=== PATIENT | female | born 1990 | race Caucasian/White ===

== ENCOUNTER → 2017-02-13 | Outpatient (CLI) | payer OTHER ==
[2017-02-13 13:00] LABS: GLUCOSE, FASTING 93 MG/DL (70-105)
== END ==
LOC: M WUC 10:07
DX: Z86.32 Personal history of gestational diabetes (principal)

== ENCOUNTER 2017-04-10 21:45 | Outpatient (CLI) | payer OTHER ==
[2017-04-10 22:43] LABS: AMORPHOUS SEDIMENT SMALL (NEGATIVE); APPEARANCE, URINE HAZY (CLEAR); BACTERIA, URINE AUTO 1+ (NEGATIVE); BILIRUBIN, URINE AUTO NEGATIVE (NEGATIVE); BLOOD, URINE BLOOD 1+ (NEGATIVE); COLOR, URINE STRAW (YELLOW); GLUCOSE, URINE (UA) AUTO NEGATIVE (NEGATIVE); KETONE, URINE AUTO NEGATIVE (NEGATIVE); LEUKOCYTE ESTERASE, URINE AUTO NEGATIVE (NEGATIVE); NITRITE, URINE AUTO NEGATIVE (NEGATIVE); PROTEIN, URINE AUTO NEGATIVE (NEGATIVE); RBC, URINE AUTO 1 /HPF (0-3); SPECIFIC GRAVITY URINE AUTO 1.005 (1.002-1.035); SQUAMOUS EPITHELIAL CELL UR AU 2 /HPF (0-6); UROBILINOGEN, URINE AUTO 0.2 mg/dL (0.0-2.0); WBC, URINE AUTO 1 /HPF (0-3)
[2017-04-10 22:49] LABS: HEMATOCRIT 37.5 % (36.0-47.0); HEMOGLOBIN 12.4 g/dl (12.0-16.0); MEAN CORPUSCULAR HEMOGLOBIN 28.2 pg (27.0-33.0); MEAN CORPUSCULAR HGB CONC 33.1 g/dl (32.0-36.5); MEAN CORPUSCULAR VOLUME 85.4 fl (80.0-96.0); PLATELET COUNT, AUTOMATED 176 10^3/uL (150-450); RED BLOOD COUNT 4.39 10^6/uL (4.00-5.40); RED CELL DISTRIBUTION WIDTH 13.7 % (11.5-14.5); WHITE BLOOD COUNT 18.6 10^3/uL (4.0-10.0)
[2017-04-10 23:13] LABS: ALBUMIN 3.4 GM/DL (3.2-5.2); ALBUMIN/GLOBULIN RATIO 1.03 (1.00-1.93); ALKALINE PHOSPHATASE 60 U/L (45-117); ALT/SGPT 11 U/L (12-78); ANION GAP 10 MEQ/L (8-16); AST/SGOT 7 U/L (7-37); BILIRUBIN,TOTAL 0.5 MG/DL (0.2-1.0); BLOOD UREA NITROGEN 7 MG/DL (7-18); CALCIUM LEVEL 8.4 MG/DL (8.5-10.1); CARBON DIOXIDE LEVEL 24 MEQ/L (21-32); CHLORIDE LEVEL 106 MEQ/L (98-107); CREATININE FOR GFR 0.69 MG/DL (0.55-1.30); GLOMERULAR FILTRATION RATE > 60.0 (>60); GLUCOSE, FASTING 102 MG/DL (70-100); POTASSIUM SERUM 4.2 MEQ/L (3.5-5.1); SODIUM LEVEL 140 MEQ/L (136-145); TOTAL PROTEIN 6.7 GM/DL (6.4-8.2)
[2017-04-10] MEDS ORDERED: ceFAZolin 2 GM/D5W 50 ML IV BAG (J0690 PER 500MG) As Ordered (23:38)
[2017-04-10] MEDS ORDERED: MORPHINE 4 MG/ML 1ML VIAL (J2270) As Ordered (23:42)
[2017-04-10] MEDS ORDERED: PROMETHAZINE INJ 25 MG/ML VIAL (J2550) As Ordered (23:43)
[2017-04-10] MEDS: LR 1,000 ML IV (23:45)
[2017-04-11] MEDS: PROMETHAZINE INJ 25 MG/ML VIAL (J2550) IV ×3 (00:19→10:57)
[2017-04-11] MEDS: MORPHINE 4 MG/ML 1ML VIAL (J2270) IV ×7 (00:19→11:28)
[2017-04-11] MEDS: LR 1,000 ML IV ×3 (04:45→19:19)
[2017-04-11] MEDS: ACETAMINOPHEN 500 MG TAB PO ×2 (14:36→21:10)
[2017-04-12 08:57] LABS: HEMATOCRIT 35.7 % (36.0-47.0); HEMOGLOBIN 11.6 g/dl (12.0-16.0); MEAN CORPUSCULAR HEMOGLOBIN 28.1 pg (27.0-33.0); MEAN CORPUSCULAR HGB CONC 32.5 g/dl (32.0-36.5); MEAN CORPUSCULAR VOLUME 86.4 fl (80.0-96.0); PLATELET COUNT, AUTOMATED 164 10^3/uL (150-450); RED BLOOD COUNT 4.13 10^6/uL (4.00-5.40); RED CELL DISTRIBUTION WIDTH 13.8 % (11.5-14.5); WHITE BLOOD COUNT 12.2 10^3/uL (4.0-10.0)
== END 2017-04-12 09:26 | disposition home or self-care (01) ==
LOC: M LDO 21:45
DX: O26.833 Pregnancy related renal disease, third trimester (principal); Z3A.20 20 weeks gestation of pregnancy
CPT/HCPCS: J2270

== ENCOUNTER → 2017-06-12 | Outpatient (CLI) | payer OTHER ==
[2017-06-12 13:53] LABS: BASO % 0.4 % (0.0-1.0); EOS # 0.3 10^3/uL (0.0-0.50); EOS % 2.8 % (0.0-3.0); HEMATOCRIT 35.7 % (36.0-47.0); HEMOGLOBIN 11.5 g/dl (12.0-15.5); IMMATURE GRANULOCYTE % 1.5 % (0-3.0); LYMPH % 18.4 % (24.0-44.0); MEAN CORPUSCULAR HEMOGLOBIN 26.9 pg (27.0-33.0); MEAN CORPUSCULAR HGB CONC 32.2 g/dl (32.0-36.5); MEAN CORPUSCULAR VOLUME 83.6 fl (80.0-96.0); MONO # 0.6 10^3/uL (0.0-0.8); MONO % 5.7 % (0.0-5.0); NEUTROPHILS # 7.7 10^3/uL (1.8-7.7); NEUTROPHILS % 71.2 % (36.0-66.0); PLATELET COUNT, AUTOMATED 165 10^3/uL (150-450); RED BLOOD COUNT 4.27 10^6/uL (4.00-5.40); RED CELL DISTRIBUTION WIDTH 14.2 % (11.5-14.5); WHITE BLOOD COUNT 10.8 10^3/uL (4.0-10.0)
[2017-06-12 14:29] LABS: HEPATITIS B SURFACE ANTIGEN NEGATIVE (NEGATIVE)
[2017-06-12 14:56] LABS: HEPATITIS C VIRUS ABY INDEX < 0.0 INDEX (<0.8)
[2017-06-12 15:03] LABS: CHLAMYDIA DNA AMPLIFICATION NEGATIVE (NEGATIVE); GC DNA AMPLIFICATION NEGATIVE (NEGATIVE)
== END ==
LOC: M SMT 09:07
DX: Z34.82 Encounter for supervision of other normal pregnancy, second trimester (principal)
CPT/HCPCS: 87340

== ENCOUNTER → 2017-07-07 | Outpatient (CLI) | payer OTHER | LOC: M SMT 13:24 | DX: O24.415 Gestational diabetes mellitus in pregnancy, controlled by oral hypoglycemic drugs (principal); Z3A.33 33 weeks gestation of pregnancy | CPT/HCPCS: 76816 ==

== ENCOUNTER → 2017-08-01 | Outpatient (REF) | payer OTHER | LOC: M LAB REF 17:00 | DX: Z34.83 Encounter for supervision of other normal pregnancy, third trimester (principal) ==

== ENCOUNTER 2017-08-05 07:44 | Inpatient (IN) | payer OTHER ==
[2017-08-05] MEDS ORDERED: INSULIN IV RATE CHANGE DOCUMENTATION ML/HR XX (08:00)
[2017-08-05 08:42] LABS: BEDSIDE GLUCOSE 85 MG/DL (70-105)
[2017-08-05 08:58] LABS: HEMATOCRIT 37.5 % (36.0-47.0); HEMOGLOBIN 11.8 g/dl (12.0-15.5); MEAN CORPUSCULAR HEMOGLOBIN 25.1 pg (27.0-33.0); MEAN CORPUSCULAR HGB CONC 31.5 g/dl (32.0-36.5); MEAN CORPUSCULAR VOLUME 79.6 fl (80.0-96.0); PLATELET COUNT, AUTOMATED 154 10^3/uL (150-450); RED BLOOD COUNT 4.71 10^6/uL (4.00-5.40); RED CELL DISTRIBUTION WIDTH 15.4 % (11.5-14.5); WHITE BLOOD COUNT 12.3 10^3/uL (4.0-10.0)
[2017-08-05] MEDS ORDERED: FENTANYL 2MCG/ML ROPIVACAINE 0.2% IN 0.9% NACL 200ML IVBAG As Ordered (10:47)
[2017-08-05 10:54] LABS: BEDSIDE GLUCOSE 65 MG/DL (70-105)
[2017-08-05 11:55] LABS: BEDSIDE GLUCOSE 93 MG/DL (70-105)
[2017-08-05] MEDS: NS 1,000 ML IV (12:06)
[2017-08-05] MEDS: OXYTOCIN DRIP 30 UNITS in APPROPRIATE DILUENT 1 EA IV (12:07)
[2017-08-05] MEDS: LACTATED RINGER'S 1000 ML IV (12:07)
[2017-08-05] MEDS ORDERED: REFRIGERATOR IV KEYS XX (12:15)
[2017-08-05] MEDS ORDERED: EPIDURAL COMMENT XX (12:15)
[2017-08-05] MEDS ORDERED: NALOXONE INJ 0.4 MG/1 ML VIAL (J2310) IV (12:15)
[2017-08-05] MEDS ORDERED: FENTANYL/ROPIVACAINE/NACL BAG 200 ML EPIDURAL (12:15)
[2017-08-05] MEDS ORDERED: diphenhydrAMINE INJ 50MG/ML VIAL (J1200) IV (12:15)
[2017-08-05] MEDS ORDERED: LACTATED RINGER'S 1000 ML IV (12:15)
[2017-08-05] MEDS ORDERED: ONDANSETRON 4MG/2ML VIAL (J2405) IV (12:15)
[2017-08-05] MEDS ORDERED: ePHEDrine SULFATE 25 MG/5 ML(5MG/ML) SYRINGE IV (12:15)
[2017-08-05] MEDS ORDERED: EPIDURAL/PCA KEYS XX (12:15)
[2017-08-05 12:55] LABS: BEDSIDE GLUCOSE 72 MG/DL (70-105)
[2017-08-05] MEDS ORDERED: INSULIN HUMAN REGULAR 100 UNITS in NS 99 ML IV (13:00)
[2017-08-05 13:53] LABS: BEDSIDE GLUCOSE 75 MG/DL (70-105)
[2017-08-05 15:02] LABS: BEDSIDE GLUCOSE 67 MG/DL (70-105)
[2017-08-05 16:04] LABS: BEDSIDE GLUCOSE 80 MG/DL (70-105)
[2017-08-05 16:57] LABS: BEDSIDE GLUCOSE 79 MG/DL (70-105)
[2017-08-05] MEDS ORDERED: ACETAMINOPHEN 500 MG TAB As Ordered (17:07)
[2017-08-05] MEDS: ACETAMINOPHEN 500 MG TAB PO (17:13)
[2017-08-05 19:11] LABS: BEDSIDE GLUCOSE 75 MG/DL (70-105)
[2017-08-05 20:03] LABS: BEDSIDE GLUCOSE 71 MG/DL (70-105)
[2017-08-05 20:57] LABS: BEDSIDE GLUCOSE 68 MG/DL (70-105)
[2017-08-05 22:10] LABS: BEDSIDE GLUCOSE 91 MG/DL (70-105)
[2017-08-05 23:12] LABS: BEDSIDE GLUCOSE 73 MG/DL (70-105)
[2017-08-06 00:02] LABS: BEDSIDE GLUCOSE 137 MG/DL (70-105)
[2017-08-06] MEDS ORDERED: BICITRA 30ML SOLN UDC As Ordered (00:42)
[2017-08-06] MEDS ORDERED: ceFAZolin 2 GM/D5W 50 ML IV BAG (J0690 PER 500MG) As Ordered (00:43)
[2017-08-06] MEDS ORDERED: AZITHROMYCIN INJ 500MG VIAL (J0456) As Ordered (00:44)
[2017-08-06] MEDS ORDERED: OXYTOCIN INJ 10 UNITS/ML VIAL (J2590) As Ordered ×2 (00:52)
[2017-08-06] MEDS ORDERED: LIDOCAINE 2% W/EPIN INJ 20ML **PRES FREE As Ordered (00:55)
[2017-08-06] MEDS: AZITHROMYCIN INJ 500 MG, VIAL MATE ADAPTER 1 EACH in D5W 250 ML IV (01:00)
[2017-08-06] MEDS: BICITRA 30ML SOLN UDC PO (01:00)
[2017-08-06] MEDS ORDERED: ONDANSETRON 4MG/2ML VIAL (J2405) As Ordered (01:45)
[2017-08-06] MEDS ORDERED: MORPHINE PRES-FREE INJ 10 MG/10 ML VIAL (J2274) As Ordered (01:50)
[2017-08-06] MEDS ORDERED: LIDOCAINE PRES-FREE 2% 10ML AMP As Ordered (02:06)
[2017-08-06] MEDS ORDERED: PHENYLephrine HCL 500 MCG/5 ML (100MCG/ML) SYRINGE (J2370) As Ordered (02:11)
[2017-08-06] MEDS ORDERED: METOCLOPRAMIDE INJ 10MG/2ML VIAL (J2765) IV ×2 (02:13→03:30)
[2017-08-06] MEDS ORDERED: NALOXONE INJ 0.4 MG/1 ML VIAL (J2310) IV ×2 (02:13)
[2017-08-06] MEDS ORDERED: NALBUPHINE HCL 10 MG/ML AMP (J2300) IV (02:13)
[2017-08-06] MEDS ORDERED: ONDANSETRON 4MG/2ML VIAL (J2405) IV ×3 (02:13→03:30)
[2017-08-06] MEDS ORDERED: KETOROLAC 60 MG/2 ML VIAL (J1885) As Ordered (02:28)
[2017-08-06] MEDS ORDERED: fentaNYL 100 MCG/2 ML INJECTION (J3010) As Ordered ×3 (02:43→03:24)
[2017-08-06] MEDS: OXYTOCIN DRIP 30 UNITS in APPROPRIATE DILUENT 1 EA IV (02:46)
[2017-08-06] MEDS: LR 1,000 ML IV ×2 (02:46→10:46)
[2017-08-06] MEDS ORDERED: MEASLES,MUMPS,RUBELLA VACCINE INJ (MMR-II) (90707) SC (03:00)
[2017-08-06] MEDS ORDERED: RHOGAM 300 MCG (1500 IU) INJ (J2790) IM (03:00)
[2017-08-06] MEDS ORDERED: OXYTOCIN 30 UNITS IN 0.9% NaCl 500ML IV BAG (J2590) As Ordered (03:29)
[2017-08-06] MEDS ORDERED: MEPERIDINE INJ 25 MG/ML VIAL (J2175) IV (03:30)
[2017-08-06] MEDS ORDERED: fentaNYL 100 MCG/2 ML INJECTION (J3010) IV (03:30)
[2017-08-06] MEDS ORDERED: PERCOCET 5MG/325MG TAB PO (03:30)
[2017-08-06] MEDS: PERCOCET 5MG/325MG TAB PO ×2 (06:04→16:57)
[2017-08-06] MEDS: KETOROLAC 30 MG/ML VIAL (J1885) IV ×3 (08:27→20:20)
[2017-08-06] MEDS: PRENATAL VITAMINS CHEWABLE TABLET PO (08:27)
[2017-08-06] MEDS: DOCUSATE SODIUM 100 MG CAP PO ×2 (08:27→20:20)
[2017-08-07] MEDS ORDERED: ONDANSETRON 4MG/2ML VIAL (J2405) IV (02:00)
[2017-08-07] MEDS: KETOROLAC 30 MG/ML VIAL (J1885) IV (03:00)
[2017-08-07] MEDS ORDERED: PROMETHAZINE 25 MG TAB PO (04:00)
[2017-08-07 07:06] LABS: HEMATOCRIT 27.7 % (36.0-47.0); MEAN CORPUSCULAR HEMOGLOBIN 25.1 pg (27.0-33.0); MEAN CORPUSCULAR HGB CONC 32.1 g/dl (32.0-36.5); MEAN CORPUSCULAR VOLUME 78.2 fl (80.0-96.0); PLATELET COUNT, AUTOMATED 142 10^3/uL (150-450); RED BLOOD COUNT 3.54 10^6/uL (4.00-5.40); RED CELL DISTRIBUTION WIDTH 15.6 % (11.5-14.5); WHITE BLOOD COUNT 13.1 10^3/uL (4.0-10.0)
[2017-08-07 07:13] LABS: HEMOGLOBIN 8.9 g/dl (12.0-15.5)
[2017-08-07] MEDS: DOCUSATE SODIUM 100 MG CAP PO ×2 (08:11→20:23)
[2017-08-07] MEDS: PRENATAL VITAMINS CHEWABLE TABLET PO (08:11)
[2017-08-07] MEDS: PERCOCET 5MG/325MG TAB PO ×2 (09:29→16:50)
[2017-08-07] MEDS: IBUPROFEN 800 MG TAB PO ×2 (11:28→18:59)
[2017-08-08] MEDS: IBUPROFEN 800 MG TAB PO ×2 (02:23→10:33)
[2017-08-08] MEDS: PERCOCET 5MG/325MG TAB PO (02:24)
[2017-08-08] MEDS: PRENATAL VITAMINS CHEWABLE TABLET PO (10:32)
[2017-08-08] MEDS: DOCUSATE SODIUM 100 MG CAP PO (10:32)
== END 2017-08-08 12:55 | disposition home or self-care (01) | DRG 540 ==
LOC: M LDI 07:44 → M OBS 08-06 04:31
PROVIDERS: Obstetrics & Gynecology
PROC: 10D00Z1 Extraction of Products of Conception, Low, Open Approach (ICD-10-PCS; principal; 2017-08-06 01:24)
PROC: 3E033VJ Introduction of Other Hormone into Peripheral Vein, Percutaneous Approach (ICD-10-PCS; 2017-08-06 01:24)
PROC: 10907ZC Drainage of Amniotic Fluid, Therapeutic from Products of Conception, Via Natural or Artificial Opening (ICD-10-PCS; 2017-08-06 01:24)
DX: O24.425 Gestational diabetes mellitus in childbirth, controlled by oral hypoglycemic drugs (principal); O34.33 Maternal care for cervical incompetence, third trimester; Z37.0 Single live birth; Z3A.37 37 weeks gestation of pregnancy; Z79.84 Long term (current) use of oral hypoglycemic drugs; O62.0 Primary inadequate contractions; Z79.899 Other long term (current) drug therapy

== ENCOUNTER → 2018-10-02 | Outpatient (CLI) | payer OTHER ==
[~2018-10-02] MED LIST: COLA100C5 PO; GLUC500T PO; IBUP1TAB7 PO; OXYC1TAB23 PO; PRENTAB9 PO
[2018-10-02 13:41] LABS: HEMATOCRIT 35.1 % (36.0-47.0); HEMOGLOBIN 10.2 g/dl (12.0-15.5); MEAN CORPUSCULAR HEMOGLOBIN 20.5 pg (27.0-33.0); MEAN CORPUSCULAR HGB CONC 29.1 g/dl (32.0-36.5); MEAN CORPUSCULAR VOLUME 70.5 fl (80.0-96.0); PLATELET COUNT, AUTOMATED 309 10^3/uL (150-450); RED BLOOD COUNT 4.98 10^6/uL (4.00-5.40); WHITE BLOOD COUNT 12.6 10^3/uL (4.0-10.0)
[2018-10-02 14:00] LABS: ALBUMIN 3.8 GM/DL (3.2-5.2); ALT/SGPT 17 U/L (12-78); BILIRUBIN,TOTAL 0.6 MG/DL (0.2-1.0); BLOOD UREA NITROGEN 12 MG/DL (7-18); CARBON DIOXIDE LEVEL 24 MEQ/L (21-32); CHLORIDE LEVEL 110 MEQ/L (98-107); CHOLESTEROL LEVEL 141 MG/DL (<200); CHOLESTEROL RISK RATIO 3.065 (<5); CREATININE FOR GFR 0.82 MG/DL (0.55-1.30); FREE T4 1.11 NG/DL (0.76-1.46); GLOMERULAR FILTRATION RATE > 60.0 (>60); GLUCOSE, FASTING 101 MG/DL (70-100); HDL CHOLESTEROL 46 MG/DL (>40); LDL CHOLESTEROL 56 MG/DL (<100); NON-HDL-C 95 MG/DL; POTASSIUM SERUM 4.5 MEQ/L (3.5-5.1); SODIUM LEVEL 141 MEQ/L (136-145); TOTAL PROTEIN 7.3 GM/DL (6.4-8.2); TRIGLYCERIDES LEVEL 194 MG/DL (<150)
[2018-10-02 15:58] LABS: HEMOGLOBIN A1c 5.2 %
== END ==
LOC: M SMT 09:32
PROVIDERS: ATTEND Advanced Practice Midwife
DX: Z12.4 Encounter for screening for malignant neoplasm of cervix (principal); N87.0 Mild cervical dysplasia

== ENCOUNTER → 2019-11-26 | Outpatient (REF) | payer OTHER | LOC: M SFHCWAGY 17:44 | PROVIDERS: ATTEND Obstetrics & Gynecology | DX: Z12.4 Encounter for screening for malignant neoplasm of cervix (principal) ==

== ENCOUNTER → 2020-06-29 | Outpatient (REF) | payer OTHER | LOC: M PLALAB 11:15 | PROVIDERS: ATTEND Advanced Practice Midwife | DX: O20.0 Threatened abortion (principal) ==

== ENCOUNTER → 2020-07-01 | Outpatient (CLI) | payer OTHER | LOC: M PLALAB 10:51 | PROVIDERS: ATTEND Advanced Practice Midwife | DX: O20.0 Threatened abortion (principal); Z3A.00 Weeks of gestation of pregnancy not specified ==

== ENCOUNTER → 2020-07-02 | Outpatient (CLI) | payer OTHER ==
--- NOTE | 2020-07-02 14:46 | REP ---
INDICATION: INAPP CHG HCG EARLY PREG / R/O ECTOPIC PREG COMPARISON: None. TECHNIQUE: Transabdominal and transvaginal 1st trimester obstetrical ultrasound with color Doppler evaluation. FINDINGS: Heterogeneous anteverted uterus measures 11.1 x 5.2 x 6.4 cm. The endometrial complex measures 10 mm thickness without significant decidual reaction, endocervical fluid or intrauterine . Maternal ovaries are normal in vascularity without torsion. Right ovary measures 5.6 x 4.1 x 5.4 cm (RI 0.56) and includes 3.3 x 3.2 x 3.4 cm hypoechoic lesion likely representing corpus luteal cyst. Left ovary measures 3.3 x 2.0 x 3.3 cm (RI 0.56) and includes 1.4 x 1.5 x 1.6 cm hypoechoic lesion possibly representing physiologic cyst. No pelvic fluid or adnexal mass lesion identified. IMPRESSION: 1. Relatively normal appearance of the uterus without intrauterine . Differential diagnosis includes spontaneous , early , and ectopic cannot definitively be excluded. Correlation with serial HCG levels and repeat ultrasound as necessary. 2. Presumed cystic ovarian lesions as noted above less likely representing ectopic . <Electronically signed by Wesley Jefferson > 07/02/20 1524
== END ==
LOC: M RAD 14:04
PROVIDERS: ATTEND Advanced Practice Midwife
DX: O02.81 Inappropriate change in quantitative human chorionic gonadotropin (hCG) in early pregnancy (principal)

== ENCOUNTER → 2020-07-03 | Outpatient (REF) | payer OTHER ==
[2020-07-03 13:32] LABS: HEMATOCRIT 41.2 % (36.0-47.0); HEMOGLOBIN 13.5 g/dl (12.0-15.5); MEAN CORPUSCULAR HEMOGLOBIN 28.8 pg (27.0-33.0); MEAN CORPUSCULAR HGB CONC 32.8 g/dl (32.0-36.5); PLATELET COUNT, AUTOMATED 245 10^3/uL (150-450); RED BLOOD COUNT 4.68 10^6/uL (4.00-5.40); WHITE BLOOD COUNT 10.4 10^3/uL (4.0-10.0)
[2020-07-03 14:16] LABS: ALBUMIN 4.1 GM/DL (3.2-5.2); ALT/SGPT 24 U/L (12-78); BILIRUBIN,TOTAL 0.9 MG/DL (0.2-1.0); BLOOD UREA NITROGEN 7 MG/DL (7-18); CALCIUM LEVEL 9.6 MG/DL (8.5-10.1); CARBON DIOXIDE LEVEL 24 MEQ/L (21-32); CHLORIDE LEVEL 108 MEQ/L (98-107); CREATININE FOR GFR 0.62 MG/DL (0.55-1.30); GLOMERULAR FILTRATION RATE > 60.0 (>60); GLUCOSE, FASTING 87 MG/DL (70-100); POTASSIUM SERUM 4.3 MEQ/L (3.5-5.1); SODIUM LEVEL 139 MEQ/L (136-145); TOTAL PROTEIN 7.3 GM/DL (6.4-8.2)
== END ==
LOC: M PLALAB 10:52
PROVIDERS: ATTEND Advanced Practice Midwife
DX: O02.81 Inappropriate change in quantitative human chorionic gonadotropin (hCG) in early pregnancy (principal)

== ENCOUNTER → 2020-07-07 | Outpatient (REF) | payer OTHER | LOC: M PLALAB 12:27 | PROVIDERS: ATTEND Advanced Practice Midwife | DX: O02.81 Inappropriate change in quantitative human chorionic gonadotropin (hCG) in early pregnancy (principal) ==

== ENCOUNTER 2020-07-09 12:54 | Day surgery (SDC) | payer OTHER ==
[~2020-07-09] VITALS: Ht 149.9 cm; Wt 67.9 kg
[~2020-07-09 12:54] MED LIST changes: +DOXYCYCLINE HYCLATE 100 MG in D5W MINI-BAG PLUS 100 ML IV ONE; +LR 1,000 ML IV SCH
[2020-07-09] MEDS ORDERED: fentaNYL 100 MCG/2 ML INJECTION (J3010) As Ordered ONE (13:22)
[2020-07-09] MEDS ORDERED: MIDAZOLAM INJ 2MG/2ML VIAL (J2250 PER 1MG) As Ordered ONE (13:22)
[2020-07-09] MEDS ORDERED: LIDOCAINE 2% 100MG/5ML SDV (FOR ANES.) As Ordered ONE (13:24)
[2020-07-09 13:33] LABS: HEMATOCRIT 42.5 % (36.0-47.0); MEAN CORPUSCULAR HEMOGLOBIN 28.9 pg (27.0-33.0); MEAN CORPUSCULAR HGB CONC 32.9 g/dl (32.0-36.5); MEAN CORPUSCULAR VOLUME 87.6 fl (80.0-96.0); PLATELET COUNT, AUTOMATED 202 10^3/uL (150-450); RED BLOOD COUNT 4.85 10^6/uL (4.00-5.40); WHITE BLOOD COUNT 12.7 10^3/uL (4.0-10.0)
[2020-07-09] MEDS ORDERED: ONDANSETRON 4MG/2ML VIAL As Ordered ONE (13:50)
[2020-07-09] MEDS ORDERED: dexameTHASONE 4 MG/ML 1ML VIAL (J1100 PER 1MG) As Ordered ONE (13:50)
[2020-07-09] MEDS ORDERED: KETOROLAC 60MG 2ML VIAL As Ordered ONE (13:50)
[2020-07-09] MEDS ORDERED: propofoL 200 MG/20 ML VIAL As Ordered ONE (13:51)
--- NOTE | 2020-07-09 14:15 | ROOPDOC ---
[facility] Report Of Operation Report of Operation DATE OF PROCEDURE: 07/09/2020 PREPROCEDURE DIAGNOSES: First trimester miscarriage, missed . POSTPROCEDURE DIAGNOSES: Same. PROCEDURE: Suction D&C. SURGEON: Zoe Haney DO FACOG CARRY IN WORKER: none ANESTHESIA: General via LMA ESTIMATED BLOOD LOSS: Approximately 100 mL. IV FLUIDS REPLACED: 300 mL LR UOP: in and out cath, 25 mL COMPLICATIONS: none. SPECIMENS: products of conception, intrauterine tissue. PREOPERATIVE / PROPHYLACTIC ANTIBIOTIC: Doxycycline 100mg IV x1. INTRAOPERATIVE FINDINGS/REMARKS: Uterus sounded to 8 cm, tissue removed was grossly inspected and consistent with products of conception. 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 It is not a glandular polyp with a stalk, nor does it have the consistency of a fibroid nor is it fungating and friable like a cervical cancer mass. It is smooth in appearance and confluent with the ectocervix. Her cervical cancer screening is negative and up-to-date. DESCRIPTION OF PROCEDURE: The patient was counseled, consented on the risks, benefits, indications and alternatives procedure. Informed consent was obtained. She was taken to the operating room with an IV running and placed on the operating table in dorsal supine position. Gen. anesthesia was administered and the airway was secured without any difficulty. She was prepared and draped in the normal sterile fashion. She was placed in the high lithotomy position. A time out was performed per protocol. The bladder was drained with a sterile in and out catheter. Sterile speculum was placed with good visualization of the cervix. The cervix was grasped with a single-tooth tenaculum at the anterior lip and downward traction was applied. The cervix was sequentially dilated with Christian dilators up to a #20. A size 9 curved Vacurette was placed trans-cervically into the intrauterine cavity. Suction was activated. Tissue and blood return was consistent with products of conception. After removal of the Vacurette, a sharp curettage was performed with minimal tissue and blood return. Minimal bleeding from the cervical os was noted. The patient's vitals were normal and stable. The decision was made to conclude the procedure. Single-tooth tenaculum was removed from the cervix and the tenaculum sites were noted to be hemostatic. Again, minimal bleeding from the cervical os was noted. All instruments were removed from the vagina. Sponge and instrument counts were correct per protocol. The patient was transferred to the PACU in good and stable condition. Zoe Haney DO FACOG. ZOE HANEY DO Jul 09, 2020 14:15
[2020-07-09] MEDS ORDERED: METOCLOPRAMIDE INJ 10MG/2ML VIAL (J2765 PER 1) IV PRN (14:30)
[2020-07-09] MEDS ORDERED: fentaNYL 100 MCG/2 ML INJECTION (J3010) IV PRN (14:30)
[2020-07-09] MEDS ORDERED: ONDANSETRON 4MG/2ML VIAL IV PRN (14:30)
[2020-07-09] MEDS ORDERED: LR 1,000 ML IV SCH ×2 (14:30→14:35)
[2020-07-09] MEDS ORDERED: PERCOCET 5MG/325MG TAB PO PRN (14:30)
[2020-07-09] MEDS ORDERED: DOXYCYCLINE HYCLATE 100MG TABLET PO ONE (14:35)
[2020-07-09 15:27] VITALS: BP 155/87
== END 2020-07-09 15:35 | disposition home or self-care (01) ==
LOC: M SDC 12:54
PROVIDERS: ATTEND Obstetrics & Gynecology
DX: O02.1 Missed abortion (principal); E28.2 Polycystic ovarian syndrome; Z79.899 Other long term (current) drug therapy
CPT/HCPCS: 36415; 59820; 85027; 86850; 86900; 86901; 88305; J1100; J1885; J2250; J2405; J3010; U0002

== ENCOUNTER 2020-07-21 17:37 | Emergency (ER) | payer OTHER ==
[~2020-07-21] VITALS: Ht 149.9 cm; Wt 67.8 kg
[~2020-07-21 17:37] MED LIST changes: -DOXYCYCLINE HYCLATE 100 MG in D5W MINI-BAG PLUS 100 ML IV ONE; -LR 1,000 ML IV SCH
--- NOTE | 2020-07-21 18:52 | REP ---
INDICATION: poss ectopic preg, right sided pain. COMPARISON: 07/02/2020. TECHNIQUE: Real-time sonographic evaluation of pelvis performed utilizing transabdominal and endovaginal technique. FINDINGS: Uterus measures 11.8 x 4.9 x 7.5 cm. No intrauterine gestational sac is present. Endometrial echo complex measures 7 mm. Right ovary measures 5.8 x 3.0 x 4.0 cm and left ovary 4.9 x 1.9 x 2.9 cm. There is blood flow seen in each ovary with duplex Doppler evaluation, with no torsion. A simple cyst in the right ovary measures 3.8 x 4.3 x 3.6 cm. A simple cyst in the left ovary measures 2.2 x 1.9 x 1.8 cm. No free fluid is visualized. IMPRESSION: Empty uterus. Simple cyst right ovary 4.3 cm and simple cyst left ovary 2.2 cm. No torsion. No free fluid. <Electronically signed by Alpesh Marquez > 07/21/20 0652
[2020-07-21] MEDS ORDERED: KETOROLAC 30 MG/ML 1ML VIAL IV ONE (20:45)
[2020-07-21 21:12] LABS: BASO # 0.1 10^3/uL (0.0-0.2); BASO % 0.4 % (0.0-1.0); EOS # 0.5 10^3/uL (0.0-0.5); EOS % 3.7 % (0.0-3.0); HEMATOCRIT 33.4 % (36.0-47.0); LYMPH # 3.6 10^3/uL (1.5-5.0); LYMPH % 25.6 % (24.0-44.0); MEAN CORPUSCULAR HEMOGLOBIN 28.7 pg (27.0-33.0); MEAN CORPUSCULAR HGB CONC 32.9 g/dl (32.0-36.5); MEAN CORPUSCULAR VOLUME 87.2 fl (80.0-96.0); MONO # 0.6 10^3/uL (0.0-0.8); MONO % 4.6 % (2.0-8.0); NEUTROPHILS # 9.1 10^3/uL (1.5-8.5); NEUTROPHILS % 65.2 % (36.0-66.0); PLATELET COUNT, AUTOMATED 265 10^3/uL (150-450); RED BLOOD COUNT 3.83 10^6/uL (4.00-5.40); WHITE BLOOD COUNT 13.9 10^3/uL (4.0-10.0)
[2020-07-21 22:11] LABS: BLOOD UREA NITROGEN 11 MG/DL (7-18); CALCIUM LEVEL 9.1 MG/DL (8.5-10.1); CARBON DIOXIDE LEVEL 23 MEQ/L (21-32); CHLORIDE LEVEL 109 MEQ/L (98-107); CREATININE FOR GFR 0.61 MG/DL (0.55-1.30); GLOMERULAR FILTRATION RATE > 60.0 (>60); GLUCOSE, FASTING 95 MG/DL (70-100); HCG, SERUM QUANTITATIVE 909 MIU/ML; POTASSIUM SERUM 3.8 MEQ/L (3.5-5.1); SODIUM LEVEL 139 MEQ/L (136-145)
[2020-07-22] MEDS ORDERED: METHOTREXATE 50MG/2ML VIAL (J9260 PER 50MG) IM STA (00:29)
[2020-07-22 00:58] VITALS: BP 133/72
[2020-07-22] MEDS ORDERED: HYDR-3713 PO (01:04)
[2020-07-22] MEDS ORDERED: NORCO 5/325MG TABLET (BULK FOR ED) PO ONE (01:05)
--- NOTE | 2020-07-22 01:49 | CR.PDOC ---
General Date of Consultation: Jul 22, 2020 Consultation REASON FOR CONSULTATION/CHIEF COMPLAINT: Bleeding, pelvic pain, possible ectopic . HISTORY OF PRESENT ILLNESS: 29-year-old G4, P3 female presents to the emergency room with 10 days of bleeding and lower abdominal cramping. She rated the pain as 7 out of 10 on arrival. Bleeding is persistent and moderately heavy. History significant for a D&C procedure on 07/09/2020 for abnormally rising beta hCGs and a of uncertain location. Her last hCG level peaked at 3248 on 07/07/2020. ALLERGIES: Please see below. HOME MEDICATIONS: Please see below. PAST MEDICAL HISTORY: 1. PCOS. PAST SURGICAL HISTORY: 1. CCY 2. section x 1 3. Tonsillectomy FAMILY HISTORY: non-contributory SOCIAL HISTORY: Marital status and/or living arrangements: Children: 3 . Denies alcohol or drug use REVIEW OF SYSTEMS: Normal, except for those that are stated PHYSICAL EXAMINATION: VITAL SIGNS: Please see below. GENERAL APPEARANCE: No apparent distress. HEENT: Within normal limits. RESPIRATORY: Clear to auscultation CARDIOVASCULAR: Regular rate and rhythm. ABDOMEN: Mild tenderness in the suprapubic region. No rebound. No guarding. EXTREMITIES: Nontender. SVE: Cervix is closed. Bleeding is mild. Mild cervical tenderness, mild right adnexal tenderness LABORATORY DATA: Please see below. Serum hCG level = 909 Pelvic ultrasound: normal endometrial lining approximately 7 mm diameter. Probable scar ectopic gestation seen in the lower uterine segment. No free fluid in the pelvis. Bilateral simple appearing ovarian cysts ASSESSMENT/PLAN: scar ectopic 1. Reviewed diagnosis with the patient.. 2. Plan methotrexate treatment; medical treatment of this is reasonable based upon the decreasing hCG levels. 3. Consent for methotrexate signed 4 . Patient is aware of the option of surgical treatment 5. Plan repeat hCG level on 07/23/2020 6. Planned visit in the office on 07/24/2020 7. Ectopic precautions such as rupture of the scar discussed Vital Signs/I&O Vital Signs Date Time Temp Pulse Resp B/P (MAP) Pulse Ox O2 Delivery O2 Flow Rate FiO2 07/22/20 00:58 97.9 82 133/72 (92) 97 07/21/20 21:01 16 07/21/20 17:37 Room Air Laboratory Data Labs 24H Laboratory Tests 2 07/21/20 20:58: Immature Granulocyte % (Auto) 0.5, Neutrophils (%) (Auto) 65.2, Lymphocytes (%) (Auto) 25.6, Monocytes (%) (Auto) 4.6, Eosinophils (%) (Auto) 3.7H, Basophils (%) (Auto) 0.4, Neutrophils # (Auto) 9.1H, Lymphocytes # (Auto) 3.6, Monocytes # (Auto) 0.6, Eosinophils # (Auto) 0.5, Basophils # (Auto) 0.1, Nucleated Red Blood Cells % (auto) 0.0, Anion Gap 7L, Glomerular Filtration Rate > 60.0, Calcium Level 9.1, Human Chorionic Gonadotropin, Quant 909 07/21/20 21:11: Urine Color YELLOW, Urine Appearance CLOUDYH, Urine pH 5.0, Urine Specific Crete 1.017, Urine Protein 2+H, Urine Glucose (UA) NEGATIVE, Urine Ketones NEGATIVE, Urine Blood 3+H, Urine Nitrite NEGATIVE, Urine Bilirubin NEGATIVE, Urine Urobilinogen 0.2, Urine Leukocyte Esterase 1+H, Urine WBC (Auto) 9H, Urine RBC (Auto) TNTCH, Urine Hyaline Casts (Auto) 0, Urine Bacteria (Auto) NEGATIVE, Urine Squamous Epithelial Cells 1, Urine Sperm (Auto) CBC/BMP Laboratory Tests 07/21/20 20:58 Microbiology Microbiology 07/21/20 Urine Culture, Received Pending Allergies Coded Allergies: No Known Allergies (Unverified , 07/09/20) Home Medications Scheduled PRN Hydrocodone/Acetaminophen (Hydrocodone-Acetamin 5-325 mg) 1 Each Tablet, 1 TAB PO Q6H PRN for PAIN, #12 FRANCISCO BARBOUR MD Jul 22, 2020 01:49
== END 2020-07-22 02:26 | disposition home or self-care (01) ==
LOC: M ED 17:37
DX: O00.90 Unspecified ectopic pregnancy without intrauterine pregnancy (principal); N83.299 Other ovarian cyst, unspecified side; N93.9 Abnormal uterine and vaginal bleeding, unspecified
CPT/HCPCS: 76801; 76817; 80048; 81001; 84702; 85025; 87088; 87186; 93976; 96372; 96374; 99283; J1885; J9260

== ENCOUNTER → 2020-07-30 | Outpatient (REF) | payer OTHER ==
[~2020-07-30] MED LIST changes: +HYDR-3713 PO
== END ==
LOC: M PLALAB 10:16
PROVIDERS: ATTEND Obstetrics & Gynecology
DX: O00.80 Other ectopic pregnancy without intrauterine pregnancy (principal)

== ENCOUNTER → 2020-08-07 | Outpatient (CLI) | payer OTHER | LOC: M PLALAB 10:04 | PROVIDERS: ATTEND Obstetrics & Gynecology | DX: O00.80 Other ectopic pregnancy without intrauterine pregnancy (principal) ==

== ENCOUNTER → 2020-11-06 | Outpatient (CLI) | payer OTHER ==
[2020-11-06 13:52] LABS: HEMATOCRIT 41.2 % (36.0-47.0); HEMOGLOBIN 13.5 g/dl (12.0-15.5); MEAN CORPUSCULAR HEMOGLOBIN 27.1 pg (27.0-33.0); MEAN CORPUSCULAR HGB CONC 32.8 g/dl (32.0-36.5); MEAN CORPUSCULAR VOLUME 82.7 fl (80.0-96.0); PLATELET COUNT, AUTOMATED 220 10^3/uL (150-450); RED BLOOD COUNT 4.98 10^6/uL (4.00-5.40); WHITE BLOOD COUNT 14.5 10^3/uL (4.0-10.0)
[2020-11-06 15:03] LABS: GC DNA AMPLIFICATION NEGATIVE (NEGATIVE)
== END ==
LOC: M PLALAB 10:12
PROVIDERS: ATTEND Obstetrics & Gynecology
DX: O09.291 Supervision of pregnancy with other poor reproductive or obstetric history, first trimester (principal)

== ENCOUNTER → 2020-12-04 | Outpatient (CLI) | payer OTHER ==
[~2020-12-04] MED LIST changes: +PRENTAB53 PO
[2020-12-04 15:12] LABS: HEPATITIS C VIRUS ABY INDEX < 0.0 INDEX (<0.8); HIV 1&2 SCREEN CENTAUR NEGATIVE (NEGATIVE)
== END ==
LOC: M PLALAB 10:41
PROVIDERS: ATTEND Obstetrics & Gynecology
DX: Z36.89 Encounter for other specified antenatal screening (principal); O09.291 Supervision of pregnancy with other poor reproductive or obstetric history, first trimester; Z3A.00 Weeks of gestation of pregnancy not specified

== ENCOUNTER → 2020-12-12 | Outpatient (CLI) | payer OTHER | LOC: M LABSMTC 11:04 | PROVIDERS: ATTEND Anesthesiology | DX: Z01.812 Encounter for preprocedural laboratory examination (principal); Z20.822 Contact with and (suspected) exposure to COVID-19 ==

== ENCOUNTER 2020-12-17 06:59 | Day surgery (SDC) | payer OTHER ==
[~2020-12-17] VITALS: Ht 149.9 cm; Wt 67.9 kg
--- OUTSIDE RECORDS SUMMARY | 2020-12-17 07:04 | CCD ---
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 [id number] ALLERGIES No Known Allergies ENCOUNTERS from 1989 to 2020-12-10 Encounter Location Date Provider Diagnosis [facility] [address] [place] [address] [place] [address] Dec, Fidel Haney IMMUNIZATIONS No Information SOCIAL HISTORY Tobacco Use: Social History Observation Description Date Details (start date - stop date) Never Smoker Sex Assigned At : Social History Observation Description Sex Assigned At Unknown Alcohol Screening: Question Answer Notes Did you have a drink containing alcohol in the past year? No Points 0 Interpretation Negative Tobacco Use: Question Answer Notes Are you a: never smoker REASON FOR REFERRAL No Information VITAL SIGNS No information MEDICATIONS Medication SIG (Take, Route, Frequency, Duration) Notes Start Da te End Date Status HYDROcodone-Acetaminophen 5-325 MG 1 tablet as needed Orally every 6 hrs Not-Taking clomiPHENE Citrate 50 MG 1 tablet Orally Once a day for 5 da y(s) First dose should be between D3 and D5 of menstrual cycle. Nov, Not-Taking Provera 10 MG 1 tablet with food Orally Once a day for 10 day(s) Jan, Not-Taking Triamcinolone Acetonide 0.1 % apply thin layer to area s on arms and abdomen Externally Twice a day for 7 day(s) Jul, Not-Taking 27-1 MG 1 tablet Orally Once a day Active predniSONE 20 MG 1 tablet Orally bid for 5 day(s) Jul, Not-Taking Drospirenone-Ethinyl Estradiol 3-0.02 MG 1 tablet Orally Once a day Jan, Not-Taking Letrozole 2.5 MG 1 tablet Orally Once a day for 5 day(s) Take on Day 3 through 7 of menstrual cycle. Mar, Not-Taking metFORMIN HCl ER 750 MG 1 tablet with evening meal O rally Once a day for 30 day(s) Jan, Not-Taking PROCEDURES No Information RESULTS No Results REASON FOR VISIT cold sx/cerclage 12/17/20 MEDICAL (GENERAL) HISTORY Type Description Date Medical History PCOS Surgical History cholecystectomy 09/2014 Surgical History tonsillectomy 1998 Surgical History C section 08/2017 Surgical History suction D&C- 1st trimester MAB 07/09/20 Hospitalization History childbirth 08/2017 Goals Section No Information Health Concerns No Information MEDICAL EQUIPMENT No Information MENTAL STATUS No Information FUNCTIONAL STATUS No Information ASSESSMENTS No Information PLAN OF TREATMENT Next Appt Details Provider Name:Fidel Haney, 11:00:00 AM, [address] [place] [id number], [place], [address], Provider Name:Fidel Haney, 08:30:00 AM, [address] [place], [place] [id number], [place], [address], Provider Name:Fidel Haney, 09:00:00 AM, [address] [place], [place] [address], [place], [address], Insurance Providers Payer Name Payer Address Payer Phone Insured Name Patient Relati onship to Insured Coverage Start Date Coverage End Date [facility] [employer] CLAIM[employer] DEPT [address] [place] [phone] KELLEN KENNEDY self
--- OUTSIDE RECORDS SUMMARY | 2020-12-17 07:04 | CCD ---
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 [id number] ALLERGIES No Known Allergies ENCOUNTERS from 1989 to 2020-11-24 Encounter Location Date Provider Diagnosis [facility] [address] [place] [address] [place] [address] Nov, Fidel Haney IMMUNIZATIONS No Information SOCIAL HISTORY [...] Information RESULTS No Results REASON FOR VISIT 12/17/20 SURG AUTH MEDICAL (GENERAL) HISTORY Type Description Date Medical [...] Appt Details Provider Name:Fidel Haney, 11:00:00 AM, [address] [place] [address], [phone], Provider Name:Fidel Haney, 08:30:00 AM, [address] [place] [address], [phone], Provider Name:Fidel Haney, 09:00:00 AM, [address] [place] [address], [phone], Insurance Providers Payer Name Payer Address Payer Phone Insured Name Patient Relati onship to Insured Coverage Start Date Coverage End Date [facility] CLAIMS DEPT [address] [place] [phone] KELLEN KENNEDY self
--- OUTSIDE RECORDS SUMMARY | 2020-12-17 07:04 | CCD ---
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 [address] [place] [address] [place] [address] Nov, Fidel Haney IMMUNIZATIONS No Information SOCIAL [...] Notes Start Da te End Date Status metFORMIN HCl ER 750 MG 1 tablet with evening meal O rally Once a day for 30 day(s) Jan, Not-Taking 27-1 MG 1 tablet Orally Once a day Not-Taking Drospirenone-Ethinyl Estradiol 3-0.02 MG 1 tablet Orally Once a day Jan, Not-Taking Letrozole 2.5 MG 1 tablet Orally Once a day for 5 day(s) Take on Day 3 through 7 of menstrual cycle. Mar, Not-Taking clomiPHENE Citrate 50 MG 1 tablet Orally Once a day for 5 da y(s) First dose should be between D3 and D5 of menstrual cycle. Nov, Not-Taking Provera 10 MG 1 tablet with food Orally Once a day for 10 day(s) Jan, Not-Taking predniSONE 20 MG 1 tablet Orally bid for 5 day(s) Jul, Not-Taking Triamcinolone Acetonide 0.1 % apply thin layer to area s on arms and abdomen Externally Twice a day for 7 day(s) Jul, Not-Taking HYDROcodone-Acetaminophen 5-325 MG 1 tablet as needed Orally every 6 hrs Not-Taking PROCEDURES No Information RESULTS No Results REASON FOR VISIT NEEDS 2 WK APPT MEDICAL (GENERAL) HISTORY Type Description Date Medical [...] PLAN OF TREATMENT Next Appt Details Provider Name:Dima Slater, 2020-11-20 1 0:00:00 AM, [address] [facility], , [place], [address], Insurance Providers Payer Name Payer Address Payer Phone Insured Name Patient Relati onship to Insured Coverage Start Date Coverage End Date [facility] [employer] CLAIMS DEPT [address] [facility] [phone] KELLEN KENNEDY self
--- OUTSIDE RECORDS SUMMARY | 2020-12-17 07:04 | CCD ---
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 [id number] ALLERGIES No Known Allergies ENCOUNTERS from 1989 to 2020-11-09 Encounter Location Date Provider Diagnosis [facility] [address] [place] [address] [place] [address] Nov, Fidel Haney Prior poor obstetric al history in first trimester, antepartum O09.291 and 8 weeks gestation of Z3A.08 IMMUNIZATIONS No Information SOCIAL HISTORY Tobacco Use: [...] REASON FOR REFERRAL No Information VITAL SIGNS Weight 149 lbs Nov, Height 59 in Nov, BMI 30.094 kg/m2 Nov, Blood pressure systolic 140 mm Hg Nov, Blood pressure diastolic 80 mm Hg Nov, MEDICATIONS Medication SIG (Take, Route, Frequency, Duration) [...] 6 hrs Not-Taking PROCEDURES No Information RESULTS Component Value Reference Range Type and Screen Prenatal1 Reviewed date:11/09/2020 07:51:55 Interpretation: Performing Lab:[facility] [address] [place] [address] , ,[place] [address] AB SCREEN PNP1 GEL (VIS) NEGATIVE CBC - Complete Blood Count Reviewed date:11/09/2020 07:51:55 Interpretation: Performing Lab:[facility] [address] [place] [address] , ,[place] [address] WHITE BLOOD COUNT 14.5 4.0-10.0 RED BLOOD COUNT 4.98 4.00-5.40 HEMOGLOBIN 13.5 12.0-15.5 HEMATOCRIT 41.2 36.0-47.0 MEAN CORPUSCULAR VOLUME 82.7 80.0-96.0 MEAN CORPUSCULAR HEMOGLOBIN 27.1 27.0-33.0 MEAN CORPUSCULAR HGB CONC 32.8 32.0-36.5 RED CELL DISTRIBUTION WIDTH 14.9 11.5-14.5 PLATELET COUNT, AUTOMATED 220 150-450 CHLAMYDIA & GC DNA AMPLIFICAT Reviewed date:11/09/2020 07:51:55 Interpretation: Performing Lab:[facility] [address] [facility] [address] , ,[place] [address] CHLAMYDIA DNA AMPLIFICATION NEGATIVE NEGATIVE GC DNA AMPLIFICATION NEGATIVE NEGATIVE URINE CULTURE Reviewed date:11/09/2020 07:51:55 Interpretation: Performing Lab:[facility], [facility] [address] [facility] [address] , ,[place] [address] REASON FOR VISIT 1st pn MEDICAL (GENERAL) HISTORY Type Description Date Medical History PCOS Surgical History cholecystectomy 09/2014 Surgical History tonsillectomy 1997 Surgical History C section 08/2017 Surgical History suction D&C- 1st trimester MAB 07/09/20 Hospitalization History childbirth 08/2017 Goals Section No Information Health Concerns No Information MEDICAL EQUIPMENT No Information MENTAL STATUS No Information FUNCTIONAL STATUS No Information ASSESSMENTS Encounter Date Diagnosis Assessment Notes Treatment Notes Treatm ent Clinical Notes Nov, Prior poor obstetrical histo ry in first trimester, antepartum (ICD- 10 - O09.291) Nov, 8 weeks gestation of (ICD-10 - Z3A.08) PLAN OF TREATMENT Treatment Notes Test Name Order Date HIV 1and2 ANTIBODY SCREEN 2020-11-06 SYPHILIS ANTIBODY (RPR SCREEN) 2020-11-06 RUBELLA IMMUNE STATUS IgG 2020-11-06 HEPATITIS C ANTIBODY INDEX 2020-11-06 HBSAG 2020-11-06 Next Appt Details 2 Weeks Reason: Provider Name:Dima Slater, 2020-11-20 1 0:00:00 AM, [address] [facility], , [place], [address], Insurance Providers Payer Name Payer Address Payer Phone Insured Name Patient Relati onship to Insured Coverage Start Date Coverage End Date [employer] CLAIMS DEPT [address] [place] [phone] KELLEN KENNEDY self
--- OUTSIDE RECORDS SUMMARY | 2020-12-17 07:04 | CCD ---
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 [id number] ALLERGIES No Known Allergies ENCOUNTERS from 1989 to 2020-11-20 Encounter Location Date Provider Diagnosis [facility] [address] [place] [address] [place] [address] Nov, Dima Slater Previous de livery affecting O34.219 IMMUNIZATIONS No Information SOCIAL HISTORY Tobacco Use: [...] FOR REFERRAL No Information VITAL SIGNS Weight 149.0 lbs Nov, Weight-kg 67.59 kg Nov, Height 59 in Nov, BMI 30.094 kg/m2 Nov, Blood pressure systolic 124 mm Hg Nov, Blood pressure diastolic 82 mm Hg Nov, MEDICATIONS Medication SIG (Take, [...] Information RESULTS No Results REASON FOR VISIT 2 WK PN MEDICAL (GENERAL) HISTORY Type Description Date Medical [...] Treatment Notes Treatm ent Clinical Notes Nov, Previous delivery affecting pre gnancy (ICD-10 - O34.219) PLAN OF TREATMENT Next Appt Details 4 Weeks Reason:Cob Provider Name:Fidel Amparo Haney, 2020-12- 11:00:00 AM, [address] [facility], , [place], [address], Follow Up:4 WeeksCob Insurance Providers Payer Name Payer Address Payer Phone Insured Name Patient Relati onship to Insured Coverage Start Date Coverage End Date [facility] [employer] [place] [phone] KELLEN KENNEDY
[2020-12-17] MEDS ORDERED: LR 1,000 ML IV ONE (07:10)
[2020-12-17 07:28] LABS: HEMATOCRIT 38.2 % (36.0-47.0); HEMOGLOBIN 12.6 g/dl (12.0-15.5); MEAN CORPUSCULAR HEMOGLOBIN 27.6 pg (27.0-33.0); MEAN CORPUSCULAR VOLUME 83.8 fl (80.0-96.0); PLATELET COUNT, AUTOMATED 204 10^3/uL (150-450); RED BLOOD COUNT 4.56 10^6/uL (4.00-5.40); WHITE BLOOD COUNT 13.2 10^3/uL (4.0-10.0)
[2020-12-17] MEDS ORDERED: DESFLURANE 240 ML INHALANT As Ordered ONE (09:18)
[2020-12-17] MEDS ORDERED: CHLOROPROCAINE PRES. FREE 2% 20ML VIAL As Ordered ONE (09:18)
[2020-12-17] MEDS ORDERED: SEVOFLURANE INHAL SOLN 250 ML BTL As Ordered ONE (09:18)
[2020-12-17] MEDS ORDERED: fentaNYL 100 MCG/2 ML INJECTION (J3010) As Ordered ONE (09:18)
[2020-12-17] MEDS ORDERED: fentaNYL 100 MCG/2 ML INJECTION (J3010) IV PRN (10:05)
[2020-12-17] MEDS ORDERED: oxyCODONE 5MG TAB PO PRN (10:05)
[2020-12-17] MEDS ORDERED: LR 1,000 ML IV SCH ×2 (10:05→10:10)
[2020-12-17] MEDS ORDERED: METOCLOPRAMIDE INJ 10MG/2ML VIAL (J2765 PER 1) IV PRN (10:05)
[2020-12-17] MEDS ORDERED: ONDANSETRON 4MG/2ML VIAL IV PRN (10:05)
[2020-12-17] MEDS ORDERED: INDOMETHACIN 25 MG CAP PO PRN (10:10)
--- NOTE | 2020-12-17 10:15 | ROOPDOC ---
[facility] Report Of Operation Report of Operation DATE OF PROCEDURE: 12/17/20 PREPROCEDURE DIAGNOSES: History of cervical insufficiency, abnormal cervix. 14+ weeks gestation POSTPROCEDURE DIAGNOSES: Same. PROCEDURE PERFORMED: Chi cerclage. SURGEON: Scar Haney DO FACOG SEWING MACHINE OPERATOR PLASTIC ZIPPER: AUDREY Pearce ANESTHESIA: Spinal ESTIMATED BLOOD LOSS: Approximately 20 mL. COMPLICATIONS: none REMARKS: Knot tied at 12 o'clock FINDINGS: Abnormal appearing cervix, scarring all along the anterior cervix at the cervicovaginal junction, protuberant anterior cervix likely secondary to her history of a cervical laceration and subsequent repair. 2 cm dilated visually prior to cerclage placement. Post cerclage placement, cervix was less than fingertip dilated. No evidence of amniotic fluid/membrane rupture. Preop heart tones 140 bpm. Postop bedside US: FHR 140bpm, normal AFV, MVP 4-5cm. +FM. PROCEDURE NOTE: The patient was counseled and consented on the risk benefits indications and alternatives of the procedure. Informed consent was obtained. She was taken to the operating room with an IV running and spinal anesthesia was administered without any difficulty. She was prepared and draped in normal sterile fashion. She was placed in the high lithotomy position. Time out was performed per protocol. The bladder was drained with a sterile in and out catheter. A Zamora retractor was placed in the anterior vagina and the posterior wall of vagina was retracted with a weighted speculum. Chi cerclage was placed with 5-Ethibond suture. This pursestring stitch was tied at the 12 o'clock position. After tying down the stitch, minimal bleeding was noted. No evidence of amniotic fluid noted. Cervical dilation was less than 1 cm digitally and visually. Patient tolerated the entire procedure well she was transferred to the PACU in good and stable condition. DO ARA Mata JONATHAN R. DO Dec 17, 2020 10:15
[2020-12-17 10:45] VITALS: BP 138/72
== END 2020-12-17 11:35 | disposition home or self-care (01) ==
LOC: M SDC 06:59
PROVIDERS: ATTEND Obstetrics & Gynecology
DX: O34.32 Maternal care for cervical incompetence, second trimester (principal); Z3A.14 14 weeks gestation of pregnancy
CPT/HCPCS: 36415; 59320; 85027; 86850; 86900; 86901; J2400; J3010

== ENCOUNTER → 2021-01-28 | Outpatient (CLI) | payer OTHER | LOC: M WHC 09:50 | PROVIDERS: ATTEND Obstetrics & Gynecology | DX: O34.32 Maternal care for cervical incompetence, second trimester (principal); Z3A.20 20 weeks gestation of pregnancy ==

== ENCOUNTER → 2021-03-05 | Outpatient (CLI) | payer OTHER | LOC: M WHC 08:48 | PROVIDERS: ATTEND Obstetrics & Gynecology | DX: O34.211 Maternal care for low transverse scar from previous cesarean delivery (principal) ==

== ENCOUNTER → 2021-03-16 | Outpatient (CLI) | payer OTHER, SELFPAY | LOC: M PLALAB 08:14 | PROVIDERS: ATTEND Obstetrics & Gynecology | DX: O34.211 Maternal care for low transverse scar from previous cesarean delivery (principal) ==

== ENCOUNTER → 2021-05-03 | Outpatient (CLI) | payer OTHER | LOC: M WHC 10:11 | PROVIDERS: ATTEND Obstetrics & Gynecology | DX: O24.419 Gestational diabetes mellitus in pregnancy, unspecified control (principal) ==

== ENCOUNTER → 2021-05-19 | Outpatient (CLI) | payer OTHER ==
[~2021-05-19] VITALS: Ht 149.9 cm; Wt 74.8 kg
[~2021-05-19] MED LIST changes: +BETAMETHASONE SOLUSPAN 6MG/ML 5ML VIAL (J0702 PER 3MG) IM ONE; +TUMS750C22 PO
== END ==
LOC: M LDO 16:34
PROVIDERS: ATTEND Obstetrics & Gynecology
DX: O60.03 Preterm labor without delivery, third trimester (principal); Z3A.36 36 weeks gestation of pregnancy

== ENCOUNTER → 2021-05-20 | Outpatient (CLI) | payer OTHER ==
[~2021-05-20] MED LIST changes: -BETAMETHASONE SOLUSPAN 6MG/ML 5ML VIAL (J0702 PER 3MG) IM ONE
== END ==
LOC: M LABSMTC 09:40
PROVIDERS: ATTEND Anesthesiology
DX: Z01.812 Encounter for preprocedural laboratory examination (principal); Z20.822 Contact with and (suspected) exposure to COVID-19

== ENCOUNTER → 2022-08-15 | Outpatient (REF) | payer OTHER ==
[~2022-08-15] MED LIST changes: +IBUP80TA PO; +PERCOCET PO
== END ==
LOC: M SFHCWAGY 10:31
PROVIDERS: ATTEND Obstetrics & Gynecology
DX: Z12.4 Encounter for screening for malignant neoplasm of cervix (principal)

== ENCOUNTER → 2022-08-19 | Outpatient (CLI) | payer BC, OTHER ==
[2022-08-19 14:28] LABS: HEMATOCRIT 43.1 % (36.0-47.0); MEAN CORPUSCULAR HEMOGLOBIN 28.3 pg (27.0-33.0); MEAN CORPUSCULAR HGB CONC 32.5 g/dl (32.0-36.5); MEAN CORPUSCULAR VOLUME 87.1 fl (80.0-96.0); PLATELET COUNT, AUTOMATED 184 10^3/uL (150-450); RED BLOOD COUNT 4.95 10^6/uL (4.00-5.40); WHITE BLOOD COUNT 9.8 10^3/uL (4.0-10.0)
[2022-08-19 14:56] LABS: ALBUMIN 4.3 G/DL (3.2-5.2); ALKALINE PHOSPHATASE 53 U/L (46-116); ALT/SGPT 33 U/L (7.0-40); AST/SGOT 9 U/L (<34); BILIRUBIN,TOTAL 0.8 MG/DL (0.3-1.2); BLOOD UREA NITROGEN 11 MG/DL (9-23); CALCIUM LEVEL 9.2 MG/DL (8.5-10.1); CARBON DIOXIDE LEVEL 26 MMOL/L (20-31); CHLORIDE LEVEL 107 MMOL/L (98-107); CREATININE FOR GFR 0.62 MG/DL (0.55-1.30); GLOMERULAR FILTRATION RATE > 60.0 (>60); GLUCOSE, FASTING 93 MG/DL (60-100); POTASSIUM SERUM 4.4 MMOL/L (3.5-5.1); SODIUM LEVEL 141 MMOL/L (136-145); THYROID STIMULATING HORMONE 1.459 uIU/ML (0.55-4.78); TOTAL PROTEIN 7.1 G/DL (5.7-8.2)
== END ==
LOC: M PLALAB 11:11
PROVIDERS: ATTEND Obstetrics & Gynecology
DX: N93.9 Abnormal uterine and vaginal bleeding, unspecified (principal)

== ENCOUNTER → 2023-03-10 | Outpatient (CLI) | payer BC, OTHER ==
[2023-03-10 15:48] LABS: BASO # 0.1 10^3/uL (0.0-0.2); BASO % 0.5 % (0.0-1.0); EOS # 0.6 10^3/uL (0.0-0.5); EOS % 5.5 % (0.0-3.0); HEMATOCRIT 41.5 % (36.0-47.0); HEMOGLOBIN 13.4 g/dl (12.0-15.5); LYMPH # 2.8 10^3/uL (1.5-5.0); LYMPH % 27.6 % (24.0-44.0); MEAN CORPUSCULAR HEMOGLOBIN 28.1 pg (27.0-33.0); MEAN CORPUSCULAR HGB CONC 32.3 g/dl (32.0-36.5); MONO # 0.7 10^3/uL (0.0-0.8); MONO % 7.4 % (2.0-8.0); NEUTROPHILS # 5.9 10^3/uL (1.5-8.5); NEUTROPHILS % 58.5 % (36.0-66.0); PLATELET COUNT, AUTOMATED 211 10^3/uL (150-450); RED BLOOD COUNT 4.77 10^6/uL (4.00-5.40); WHITE BLOOD COUNT 10.1 10^3/uL (4.0-10.0)
[2023-03-10 15:55] LABS: ALKALINE PHOSPHATASE 47 U/L (46-116); ALT/SGPT 31 U/L (7.0-40); AST/SGOT 12 U/L (<34); BILIRUBIN,TOTAL 0.8 MG/DL (0.3-1.2); BLOOD UREA NITROGEN 14 MG/DL (9-23); CALCIUM LEVEL 9.3 MG/DL (8.5-10.1); CARBON DIOXIDE LEVEL 29 MMOL/L (20-31); CHLORIDE LEVEL 107 MMOL/L (98-107); CREATININE FOR GFR 0.79 MG/DL (0.55-1.30); GLOMERULAR FILTRATION RATE > 60.0 (>60); GLUCOSE, FASTING 96 MG/DL (60-100); POTASSIUM SERUM 4.5 MMOL/L (3.5-5.1); SODIUM LEVEL 141 MMOL/L (136-145); TOTAL PROTEIN 7.1 G/DL (5.7-8.2)
[2023-03-13 14:08] LABS: TESTOSTERONE FREE (DIRECT) 1.4 pg/mL (0.0-4.2)
== END ==
LOC: M PLALAB 13:44
PROVIDERS: ATTEND Nurse Practitioner Family
DX: L68.0 Hirsutism (principal)